=== PATIENT | female | born 1995 | race African-American/Black ===

== ENCOUNTER 2017-11-02 13:34 | Outpatient (CLI) | payer BC | END 2017-11-02 13:35 | disposition home or self-care (01) | LOC: DTY/OP 13:34 | PROVIDERS: ATTEND Specialist | DX: Z01.818 Encounter for other preprocedural examination (principal); E66.01 Morbid (severe) obesity due to excess calories | CPT/HCPCS: 97802 ==

== ENCOUNTER 2017-12-20 13:00 | Inpatient (IN) | payer BC ==
[2017-12-26] MEDS ORDERED: Heparin 5,000 UNITS/ML VIAL ONE (06:11)
[2017-12-26] MEDS ORDERED: Scopolamine 1.5 mg/72 hour Patch ONE (06:12)
[2017-12-26] MEDS ORDERED: Ketorolac Tromethamine 30 MG/ML VIAL ONE (06:12)
[2017-12-26] MEDS ORDERED: cefOXitin 2 GM in Sodium Chloride 0.9% 100 ML IVPB SCH (06:30)
[2017-12-26] MEDS ORDERED: Fentanyl 250 MCG/5 ML VIAL ONE (06:53)
[2017-12-26] MEDS ORDERED: Ondansetron HCl/PF 4 MG/2 ML Vial ONE (07:00)
[2017-12-26] MEDS ORDERED: Lidocaine 1% PF 5 ML VIAL ONE (07:00)
[2017-12-26] MEDS ORDERED: Dexamethasone 20 MG/5 ML VIAL ONE (07:00)
[2017-12-26] MEDS ORDERED: PROPOFOL 200 MG/20 ML VIAL ONE (07:00)
[2017-12-26] MEDS ORDERED: Glycopyrrolate 0.2 MG/ML 5 ML SYRINGE ONE (07:00)
[2017-12-26] MEDS ORDERED: Bupivacaine/Epinephrine 0.25% 30 ML VIAL ONE (07:02)
[2017-12-26 07:48] LABS: Hemoglobin 9.3 g/dL (12.0-16.0); Mean Corpuscular HGB CONC 30.5 g/dL (32.0-36.0); Mean Corpuscular Hemoglobin 21.8 pg (27.0-31.0); Mean Corpuscular Volume 71.4 fl (81.0-99.0); Mean Platelet Volume 8.8 fL (7.4-10.4); Platelet Count 312 thou/uL (130-400); RBC Distribution Width 15.7 % (11.5-14.5); Red Blood Cell (RBC) Count 4.28 mill/uL (4.20-5.40); White Blood Cell (WBC) Count 4.5 thou/uL (4.8-10.8)
[2017-12-26 07:49] LABS: %Neutrophils 59.8 % (42.0-75.0)
[2017-12-26 08:24] LABS: #Eosinphils 0.1 thou/uL (0.0-0.7); #Lymphocytes 1.3 thou/uL (1.20-3.40); #Monocytes 0.4 thou/uL (0.11-0.59); #Neutrophils 2.7 thou/uL (1.40-6.50); %Eosinophils 1.2 % (0.0-10.0); %Lymphocytes 28.9 % (21.0-51.0); %Monocytes 9.1 % (0.0-10.0); MDiff Complete? YES; Microcytosis MODERATE=15-30 cells (100X) (0-5/hpf); Ovalocytes SLIGHT = 2-5 cells (100X) (0-1/hpf); PLT Morphology Comment Appears Adequate; Polychromasia SLIGHT = 2-3 cells (100X) (0-2/hpf)
[2017-12-26] MEDS ORDERED: Fentanyl 100 MCG/2 ML VIAL ONE ×2 (09:03→09:26)
[2017-12-26] MEDS ORDERED: Promethazine HCl 25 MG/ML VIAL IM PRN ×2 (09:05→10:44)
[2017-12-26] MEDS ORDERED: Promethazine HCl 25 MG/ML VIAL SLOW IVP PRN (09:05)
[2017-12-26] MEDS ORDERED: HYDROmorphone 2 MG/ML VIAL SLOW IVP PRN (09:05)
[2017-12-26] MEDS ORDERED: Midazolam HCl 2 mg/2 ml Vial ONE (09:07)
[2017-12-26] MEDS ORDERED: D5 1/2 NS w/20 mEq KCL 1,000 ML ONE (09:59)
--- NOTE | 2017-12-26 10:39 | OP ---
DATE OF PROCEDURE: 12/26/2017 PREOPERATIVE DIAGNOSIS: Morbid obesity. POSTOPERATIVE DIAGNOSIS: Morbid obesity. OPERATION PERFORMED: Laparoscopic sleeve gastrectomy using the ViSiGi device. SURGEON: Ankur Barnett M.D. ANESTHESIA: General endotracheal per Harriett Fleming CRNA. INDICATIONS: Patient is a 22-year-old -English female who presents following extensive preoperative education and evaluation. OPERATIVE PROCEDURE IN DETAIL: Informed consent was obtained. The patient was taken to the operating room, where general endotracheal anesthesia was obtained with the patient in supine position. Abdomen was clipped of hair, prepped with ChloraPrep, and draped in sterile fashion. Local anesthetic was infiltrated using 0.25% Marcaine with epinephrine and a 5 mm supraumbilical incision was created through which a Veress needle was passed into the peritoneal cavity and pneumoperitoneum established using carbon dioxide up to a pressure of 15 mmHg. A 5 mm trocar port was passed through this same incision. Laparoscopic camera was passed through this port. Under direct vision, 4 additional laparoscopic ports were placed including bilateral subcostal 5 mm ports, a right paramedian 12 mm port, and a left paramedian 15 mm port. A 5 mm epigastric incision was created through which Nathansen retractor was passed into the abdominal cavity and used to retract the left lobe of the liver. The pylorus was identified. Beginning 5 cm proximal to the pylorus, the omental and vascular tissue was dissected away from the greater curvature of the stomach in an ascending fashion using the Ligasure device. Hemostasis was maintained. The short gastric vessels were divided in a similar fashion. Posterior gastric adhesions were divided as well. The angle of His was mobilized and the left asa of the diaphragm was dissected as well. Once complete gastric mobilization was obtained, a 36 [place] Visigi device was passed by Anesthesia through the stomach down to the level of the pylorus. This was used as a guide for the subsequent gastrectomy. The gastrectomy was performed using several firings of the [place] stapler, initially using a green load followed by a gold load and a series of blue loads to complete the resection. Great care was taken to avoid narrowing of the incisura or the gastroesophageal junction. Once the stomach was completely transected, the excised portion was removed through the 15 mm port site. The fascia was closed at that location using a jxlsmy-yz-dybib suture of 0 Vicryl using a GraNee needle. Using the Visigi, the stomach was insufflated to check for staple line leak. There was none, so Visigi was remeoved. The staple line was inspected for hemostasis. Hemostasis obtained using electrocautery and/or Hemoclips as necessary. All irrigant from within the abdomen was aspirated. The Nathansen retractor and all ports were removed under direct vision. Pneumoperitoneum was carefully evacuated. Quarter percent Marcaine with epinephrine was infiltrated in each port site and skin edges approximated with 4-0 Monocryl subcuticular suture. Dermabond was placed externally. There were no complications. The patient tolerated the procedure well and was taken to recovery room in stable condition. FINDINGS: Patient had some subhepatic adhesions under the left lobe of the liver. They were taken down uneventfully. Surgery was performed uneventfully. She had a normal appearing liver. There was essentially no blood loss during the course of the operation. There were no complications and patient tolerated the procedure well. PEDRO
[2017-12-26] MEDS ORDERED: diphenhydrAMINE 50 MG/ML VIAL IVP PRN (10:44)
[2017-12-26] MEDS ORDERED: Dextrose 50% Abboject 50 ML SYRINGE SLOW IVP PRN (10:44)
[2017-12-26] MEDS ORDERED: hydrALAZINE 20 MG/ML VIAL SLOW IVP PRN (10:44)
[2017-12-26] MEDS ORDERED: Ondansetron HCl/PF 4 MG/2 ML Vial IVP PRN (10:44)
[2017-12-26] MEDS ORDERED: Pantoprazole 40 MG VIAL IVP SCH ×2 (10:44→11:30)
[2017-12-26] MEDS ORDERED: Morphine 4 MG/ML Carpuject SLOW IVP PRN (10:44)
[2017-12-26] MEDS ORDERED: Dextrose 5% in Water 1,000 ML IV PRN (10:44)
[2017-12-26 11:14] VITALS: BMI 43.5
[2017-12-26] MEDS ORDERED: Morphine 4 MG/ML VIAL SLOW IVP PRN (11:23)
[2017-12-26] MEDS: D5 1/2 NS w/20 mEq KCL 1,000 ML IV SCH ×3 (11:57→23:56)
[2017-12-26] MEDS: Ketorolac Tromethamine 30 MG/ML VIAL IVP SCH ×3 (11:57→23:40)
[2017-12-26] MEDS: Morphine 4 MG/ML VIAL SLOW IVP PRN ×2 (14:21→20:42)
[2017-12-26] MEDS ORDERED: Enoxaparin Sodium 40 MG/0.4 ML SYRINGE SC SCH (21:00)
[2017-12-26] MEDS: Hydrocodone-Acetamin 15 ML UDCUP PO PRN (23:41)
[2017-12-27 05:42] LABS: #Lymphocytes 1.4 thou/uL (1.20-3.40); #Monocytes 0.9 thou/uL (0.11-0.59); #Neutrophils 8.1 thou/uL (1.40-6.50); %Basophils 0.1 % (0.0-1.0); %Eosinophils 0.1 % (0.0-10.0); %Monocytes 8.7 % (0.0-10.0); %Neutrophils 78.2 % (42.0-75.0); Hemoglobin 8.2 g/dL (12.0-16.0); Mean Corpuscular HGB CONC 30.7 g/dL (32.0-36.0); Mean Corpuscular Hemoglobin 21.9 pg (27.0-31.0); Mean Corpuscular Volume 71.4 fl (81.0-99.0); Mean Platelet Volume 8.1 fL (7.4-10.4); Platelet Count 273 thou/uL (130-400); RBC Distribution Width 15.5 % (11.5-14.5); Red Blood Cell (RBC) Count 3.74 mill/uL (4.20-5.40); White Blood Cell (WBC) Count 10.4 thou/uL (4.8-10.8)
[2017-12-27 06:07] LABS: Anion Gap 10 mmol/L (10-20); BUN (Urea Nitrogen) 4 mg/dL (7.0-18.7); Calc. Creatinine Clearance 208 mL/min (70-130); Calcium 9.1 mg/dL (7.8-10.44); Carbon Dioxide 21 mmol/L (22-29); Chloride 107 mmol/L (98-107); Estimated GFR-MDRD Greater than 90; Glucose 110 mg/dL (70-105); Potassium 3.9 mmol/L (3.5-5.1); Sodium 134 mmol/L (136-145)
[2017-12-27] MEDS: Ketorolac Tromethamine 30 MG/ML VIAL IVP SCH ×2 (06:18→12:38)
[2017-12-27] MEDS ORDERED: Pantoprazole 40 MG VIAL IVP SCH (09:00)
[2017-12-27] MEDS: Hydrocodone-Acetamin 15 ML UDCUP PO PRN (09:08)
[2017-12-27 11:37] VITALS: BP 97/68; TEMP 97.5
[2017-12-27] MEDS: D5 1/2 NS w/20 mEq KCL 1,000 ML IV SCH (12:38)
--- NOTE | 2017-12-27 14:56 | DIS ---
DATE OF ADMISSION: 12/26/2017 DATE OF DISCHARGE: 12/27/2017 ADMISSION DIAGNOSIS: Morbid obesity. DISCHARGE DIAGNOSIS: Morbid obesity. OPERATION PERFORMED: Laparoscopic vertical sleeve gastrectomy. ADMISSION HISTORY: The patient is a 22-year-old black female with a history of morbid obesity. She underwent extensive preoperative evaluation education and presents at this time for laparoscopic slee ve gastrectomy. HOSPITAL COURSE: She underwent uneventful surgery on the day of her admission. Postoperatively, she remained hemodynamically stable. She is afebrile with normal vital signs. She tolerated liquids an d advanced her diet appropriately to ensure adequate oral intake. Her examination was unremarkable. Her laboratory studies revealed her hemoglobin level dropped from 9.3 yesterday to 8.2 today. She h as recognized iron deficiency anemia. In summary, she is stable at this time following her surgery. She is discharged home with instructions for dietary advancement, understand that she is to remain o n liquids for the next 2 weeks. She will follow up with myself in 10-14 days. She is instructed to begin her bariatric chewable vitamins.
== END 2017-12-27 13:10 | disposition home or self-care (01) | DRG 621 ==
LOC: SURG A 12-26 05:48
PROVIDERS: ADMIT Specialist; ATTEND Specialist
PROC: 0DB64Z3 Excision of Stomach, Percutaneous Endoscopic Approach, Vertical (ICD-10-PCS; principal; 2017-12-26)
PROC: 0DNW4ZZ Release Peritoneum, Percutaneous Endoscopic Approach (ICD-10-PCS; 2017-12-26)
DX: E66.01 Morbid (severe) obesity due to excess calories (principal); K66.0 Peritoneal adhesions (postprocedural) (postinfection); D50.9 Iron deficiency anemia, unspecified; Z68.41 Body mass index [BMI] 40.0-44.9, adult; E55.9 Vitamin D deficiency, unspecified; Z71.3 Dietary counseling and surveillance
CPT/HCPCS: 36415; 80048; 85025; 88307; 88312; 94760; C9113; J0131; J0694; J1100; J1644; J1650; J1885; J2001; J2250; J2270; J2405; J2550; J2704; J3010; J7050

== ENCOUNTER 2017-12-22 11:47 | Outpatient (CLI) | payer BC ==
[2017-12-22 13:15] LABS: BHCG - Serum Negative (NEGATIVE); Pregs Control Background? CLEAR/WHITE (CLR/WHITE); Pregs Control Bar Appear? YES (CONTROL BAR)
--- NOTE | 2017-12-25 18:38 | EKG ---
Test Reason : Blood Pressure : / mmHG Vent. Rate : 075 BPM Atrial Rate : 075 BPM P-R Int : 156 ms QRS Dur : 078 ms QT Int : 368 ms P-R-T Axes : 054 080 002 degrees QTc Int : 410 ms Normal sinus rhythm Nonspecific T wave abnormality Abnormal ECG When compared with ECG of 22-JAN-2014 14:29, No significant change was found Confirmed by GABI CHAWLA (2) on 12/25/2017 6:37:45 PM Referred By: SARA Confirmed By:GABI CHAWLA
== END 2017-12-22 11:48 | disposition home or self-care (01) ==
LOC: LABBT 11:47
PROVIDERS: ATTEND Specialist
DX: Z01.818 Encounter for other preprocedural examination (principal); E66.01 Morbid (severe) obesity due to excess calories
CPT/HCPCS: 84703; 93005; 93010